=== PATIENT | female | born 1975 | race Asian ===

== ENCOUNTER → 2017-12-30 | Outpatient (CLI) | payer BC ==
[~2017-12-30] MED LIST: PRENATAL VITAMI1 TA5 PO
== END ==
LOC: MC.RAD 08:55
DX: Z12.31 Encounter for screening mammogram for malignant neoplasm of breast (principal)

== ENCOUNTER → 2021-05-15 | Outpatient (CLI) | payer OTHER | LOC: MC.RAD 07:00 | DX: R92.0 Mammographic microcalcification found on diagnostic imaging of breast (principal) ==

== ENCOUNTER → 2021-06-03 | Outpatient (CLI) | payer OTHER | LOC: MC.RAD 09:36 | DX: N63.20 Unspecified lump in the left breast, unspecified quadrant (principal) | CPT/HCPCS: 30634 ==

== ENCOUNTER 2022-07-02 08:26 | Day surgery (SDC) | payer OTHER ==
[~2022-07-02] VITALS: Ht 154.9 cm; Wt 72.0 kg
[2022-07-02 09:08] VITALS: BP 129/89; PULSE 77; TEMP 97.6
[2022-07-02 10:20] VITALS: BP 105/92; PULSE 72; TEMP 97.5
--- NOTE | 2022-07-02 10:20 | NUR ---
1020- PATIENT RETURNS TO [facility] VIA CART. PT AWAKE AND ALERT. RESPIRATIONS UNLABORED. AMBULATED TO RECLINER CHAIR WITH 2:1 SBA. PT DENIES NAUSEA OR ABDOMINAL PAIN. HOOKED UP TO MONITOR AND VS OBTAINED. CALL LIGHT AT SIDE AND PRESENT. 1022- DR. BACK IN ROOM SPEAKING WITH PATIENT. 1025- PATIENT TOLERATING JUICE AND MUFFIN WITHOUT NAUSEA. 1035- D/C INSTRUCTIONS REVIEWED WITH PATIENT. PT VERBALIZED UNDERSTANDING AND A COPY OF INSTRUCTIONS PROVIDED IN D/C FOLDER. 1042- PATIENT DRESSES SELF. 1052- PATIENT DISCHARGED FROM UNIT VIA W/C TO A PERSONAL VEHICLE. PT LEFT HOSPITAL IN STABLE CONDITION.
[2022-07-02 10:30] VITALS: BP 107/82; PULSE 65
[2022-07-02 10:40] VITALS: BP 108/64; PULSE 68
== END 2022-07-02 10:52 | disposition home or self-care (01) ==
LOC: SDCO 08:26
DX: Z12.11 Encounter for screening for malignant neoplasm of colon (principal); D12.3 Benign neoplasm of transverse colon
CPT/HCPCS: J2704; J7120